=== PATIENT | male | born 1980 | race Two or more races ===

== ENCOUNTER 2017-11-01 17:03 | Emergency (ER) | payer SELFPAY ==
[~2017-11-01] VITALS: Ht 172.7 cm; Wt 108.4 kg
[2017-11-01 19:43] VITALS: BP 155/98
== END 2017-11-01 19:49 | disposition home or self-care (01) ==
LOC: EME 17:03
DX: M25.571 Pain in right ankle and joints of right foot (principal); M25.471 Effusion, right ankle; Z72.0 Tobacco use
CPT/HCPCS: 73610; 99281; 99284; J1885